=== PATIENT | female | born 1985 | race Caucasian/White ===

== ENCOUNTER 2020-05-21 21:48 | Emergency (ER) | payer OTHER ==
[~2020-05-21] VITALS: Ht 172.7 cm; Wt 103.0 kg
[2020-05-21] MEDS ORDERED: [UNRECOGNIZED DRUG - OTHER] SC (22:20)
[2020-05-21] MEDS ORDERED: BUSP15TA90 PO (22:20)
[2020-05-21] MEDS ORDERED: FLUV50TA PO (22:20)
[2020-05-21] MEDS ORDERED: ADV100INH INH (22:20)
[2020-05-21] MEDS ORDERED: METF-839 PO (22:20)
[2020-05-21] MEDS ORDERED: wellbutrin PO (22:20)
[2020-05-21] MEDS ORDERED: TOPA100T12 PO (22:20)
[2020-05-21] MEDS ORDERED: VENTAER INH (22:20)
[2020-05-21] MEDS ORDERED: KETOROLAC 30 MG/ML 1ML VIAL IV ONE (22:30)
[2020-05-21 23:12] LABS: ALBUMIN 3.5 GM/DL (3.2-5.2); ALT/SGPT 24 U/L (12-78); BILIRUBIN,DIRECT < 0.1 MG/DL (0.0-0.2); BILIRUBIN,TOTAL 0.2 MG/DL (0.2-1.0); LIPASE 163 U/L (73-393); TOTAL PROTEIN 6.6 GM/DL (6.4-8.2)
[2020-05-21 23:29] LABS: BASO # 0.1 10^3/uL (0.0-0.2); BASO % 0.7 % (0.0-1.0); EOS # 0.4 10^3/uL (0.0-0.5); EOS % 5.6 % (0.0-3.0); HEMATOCRIT 38.8 % (36.0-47.0); LYMPH # 2.6 10^3/uL (1.5-5.0); LYMPH % 36.4 % (24.0-44.0); MEAN CORPUSCULAR HEMOGLOBIN 31.9 pg (27.0-33.0); MEAN CORPUSCULAR HGB CONC 33.5 g/dl (32.0-36.5); MEAN CORPUSCULAR VOLUME 95.1 fl (80.0-96.0); MONO # 0.6 10^3/uL (0.0-0.8); MONO % 7.9 % (0.0-5.0); NEUTROPHILS # 3.5 10^3/uL (1.5-8.5); NEUTROPHILS % 49.3 % (36.0-66.0); PLATELET COUNT, AUTOMATED 253 10^3/uL (150-450); RED BLOOD COUNT 4.08 10^6/uL (4.00-5.40); WHITE BLOOD COUNT 7.1 10^3/uL (4.0-10.0)
--- NOTE | 2020-05-21 23:48 | REPVR ---
PROCEDURE INFORMATION: Exam: US Nonobstetric Pelvis; Complete Exam date and time: 05/21/2020 11:26 PM Age: 34 years old Clinical indication: Pelvic pain; Additional info: Llq abd pain, wraps to back, HX cyst TECHNIQUE: Imaging protocol: Transabdominal pelvic nonobstetric ultrasound. Complete exam. Real time ultrasound with image documentation. COMPARISON: No relevant prior studies available. FINDINGS: Uterus/cervix: Endometrial measures 12 mm. Right ovary measures 3.3 x 1.7 x 1.9 cm. Uterus measures 8.2 x 3.5 x 5.5 cm. Anteverted uterus. Right adnexa: See "Uterus/cervix" finding. Left adnexa: Left ovary measures 3.6 by 2.2 x 3 cm. Left ovarian hemorrhagic follicle measuring 1.8 x 1.0 x 1.4 cm. Free fluid: A trace amount of free fluid in the pelvis. Bladder: Normal. Other findings: Flow to bilateral ovaries was identified. IMPRESSION: No evidence for ovarian torsion. Electronically signed by: Ki Valdovinos On 05/21/2020 23:47:38 PM
[2020-05-22 00:14] VITALS: BP 129/75
== END 2020-05-22 00:17 | disposition home or self-care (01) ==
LOC: M ED 21:48
DX: R10.32 Left lower quadrant pain (principal); J45.909 Unspecified asthma, uncomplicated; Z79.84 Long term (current) use of oral hypoglycemic drugs; Z79.899 Other long term (current) drug therapy; Z88.8 Allergy status to other drugs, medicaments and biological substances
CPT/HCPCS: 76830; 76856; 80047; 80076; 81001; 83690; 84702; 85025; 93976; 96374; 99284; J1885